=== PATIENT | female | born 1945 | race African-American/Black ===

== ENCOUNTER 2019-01-15 20:05 | Observation (INO) | payer MEDICARE, SELFPAY ==
--- NOTE | 2019-01-15 21:52 | RAD ---
CHEST ONE VIEW: 01/15/19 INDICATION: Left sided tremor. History of stroke. COMPARISON: None. FINDINGS: There is moderate cardiomegaly. No confluent air space opacity or pleural effusion is noted. No defin ite acute osseous abnormality is noted. IMPRESSION: Moderate cardiomegaly without evidence of cardiac decompensation. POS: [facility]
[2019-01-15 22:20] LABS: Mean Corpuscular HGB CONC 30.5 g/dL (32.0-36.0); Mean Corpuscular Hemoglobin 24.3 pg (27.0-31.0); Mean Corpuscular Volume 79.7 fL (78.0-98.0); Mean Platelet Volume 12.1 fL (7.4-10.4); Platelet Count 183 thou/uL (130-400); RBC Distribution Width 14.9 % (11.5-14.5); Red Blood Cell (RBC) Count 4.93 mill/uL (4.20-5.40); White Blood Cell (WBC) Count 8.6 thou/uL (4.8-10.8)
[2019-01-15 22:24] LABS: #Basophils 0.1 thou/uL (0.0-0.2); #Eosinphils 0.1 thou/uL (0.0-0.7); #Lymphocytes 3.3 thou/uL (1.20-3.40); #Monocytes 0.7 thou/uL (0.11-0.59); #Neutrophils 4.5 thou/uL (1.40-6.50); %Basophils 0.8 % (0.0-1.0); %Eosinophils 0.6 % (0.0-10.0); %Lymphocytes 38.8 % (21.0-51.0); %Monocytes 8.1 % (0.0-10.0); %Neutrophils 51.7 % (42.0-75.0)
[2019-01-15] MEDS ORDERED: Baclofen 10 MG TAB PO SCH (22:30)
[2019-01-15 22:36] LABS: ALT (SGPT) 25 U/L (8-55); AST (SGOT) 16 U/L (5-34); Albumin 3.7 g/dL (3.4-4.8); Alkaline Phosphatase 80 U/L (40-150); Anion Gap 14 mmol/L (10-20); BUN (Urea Nitrogen) 17 mg/dL (9.8-20.1); Bilirubin, Total 0.3 mg/dL (0.2-1.2); Calc. Creatinine Clearance 0 mL/min (70-130); Calcium 9.5 mg/dL (7.8-10.44); Carbon Dioxide 32 mmol/L (23-31); Chloride 100 mmol/L (98-107); Estimated GFR-MDRD Greater than 90; Glucose 111 mg/dL (83-110); Potassium 3.2 mmol/L (3.5-5.1); Protein, Total 6.7 g/dL (6.0-8.3); Sodium 143 mmol/L (136-145)
[2019-01-15 22:56] LABS: CKMB 0.8 ng/mL (0-6.6)
[2019-01-16 01:16] LABS: Troponin I 0.079 ng/mL (< 0.028)
[2019-01-16] MEDS ORDERED: diphenhydrAMINE 50 MG/ML VIAL ONE (01:34)
[2019-01-16] MEDS ORDERED: Aspirin 325 MG TAB ONE (02:23)
[2019-01-16] MEDS ORDERED: Potassium Chloride 20 MEQ TAB ONE (02:23)
[2019-01-16 04:25] LABS: Troponin I 0.062 ng/mL (< 0.028)
[2019-01-16] MEDS ORDERED: Ondansetron PF 4 MG/2 ML Vial IVP PRN (04:51)
[2019-01-16] MEDS ORDERED: Ondansetron ODT 4 MG TAB SL PRN (04:51)
[2019-01-16 05:29] VITALS: BMI 20.3
[2019-01-16 06:57] LABS: Troponin I 0.056 ng/mL (< 0.028)
[2019-01-16] MEDS ORDERED: Non-Formulary Item 1 EACH (Acetaminophen [Tylenol] 650 MG) PO PRN (09:28)
[2019-01-16] MEDS ORDERED: cloNIDine 0.1 MG TAB PO PRN (09:28)
[2019-01-16] MEDS ORDERED: Non-Formulary Item 1 EACH (Insulin Aspart [Novolog] 100 UNIT) SQ PRN (09:28)
[2019-01-16] MEDS ORDERED: Lorazepam 0.5 MG TAB PO PRN (09:28)
[2019-01-16] MEDS ORDERED: NUTRITIONAL SUPPLEMENT PER TUBE SCH (09:30)
[2019-01-16] MEDS ORDERED: [UNRECOGNIZED DRUG - OTHER] PER TUBE SCH (09:30)
[2019-01-16] MEDS ORDERED: Metoclopramide HCl 10 MG/2 ML VIAL IVP PRN (09:45)
[2019-01-16] MEDS ORDERED: Dextrose 50% Abboject 50 ML SYRINGE SLOW IVP PRN (09:56)
[2019-01-16] MEDS ORDERED: HumaLOG 300 UNITS/3 ML VIAL SC PRN (09:56)
[2019-01-16] MEDS ORDERED: Acetaminophen 325 MG TAB PO PRN (09:56)
[2019-01-16] MEDS ORDERED: Dextrose 5% in Water 1,000 ML IV PRN (09:56)
[2019-01-16 10:45] LABS: Anion Gap 15 mmol/L (10-20); BUN (Urea Nitrogen) 17 mg/dL (9.8-20.1); Calc. Creatinine Clearance 84 mL/min (70-130); Calcium 9.7 mg/dL (7.8-10.44); Carbon Dioxide 31 mmol/L (23-31); Chloride 100 mmol/L (98-107); Estimated GFR-MDRD Greater than 90; Glucose 148 mg/dL (83-110); Potassium 3.5 mmol/L (3.5-5.1); Sodium 142 mmol/L (136-145)
[2019-01-16] MEDS ORDERED: Baclofen 10 MG TAB PO PRN (12:23)
[2019-01-16] MEDS: Lorazepam 2 MG/ML VIAL SLOW IVP PRN (15:07)
--- NOTE | 2019-01-16 16:46 | HP ---
PRIMARY CARE PHYSICIAN: Inna Mejia DO. CHIEF COMPLAINT: Abdominal spasms, left-sided weakness and left-sided tremor. HISTORY OF PRESENT ILLNESS: Ms. 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 after being transferred from [facility] after developing abdominal wall spasming. She had recently suffered a stroke back in October of 2018 and later that month, had undergone G-tube placement due to poor intake and also dysphagia with also a concern of aspiration. She has been getting tube feeds since then. She had developed abdominal wall spasming yesterday the day prior to arrival. She had denied any chest pain, any shortness of breath, any headache or dizziness. She reports when the symptoms started, she had some abdominal pain, however, denies any other symptoms. Upon arrival, she was A and O x2, which appears to be her baseline. During her initial workup, chest x-ray was obtained and showed moderate cardiomegaly without evidence of a cardiac decompensation. Troponins were indeterminately elevated at 0.079 and trended down to 0.056. She was noticed to have a low potassium of 3.2. Therefore, she was given potassium replacement of 40 mEq of KCl, recheck of her potassium level showed improvement to 3.5. Due to her spasms, she was given IV push of 25 mg Benadryl and oral 10 mg of baclofen. She was also given oral 325 mg of aspirin and then she was admitted under observation on the telemetry floor. Her EKG displayed sinus tachycardia with rates in the 112 with premature atrial complex. She was seen by the primary team early the next morning and at that time, she denied any fever or chills, any chest pain, shortness of breath, or abdominal pain. Abdominal wall was currently spasming at that time. However, she had denied any pain. Talking to family members, states that there was a concern for possible seizure like activity that started the day prior, he had reported the patient has a history of seizure disorder and taking Depakote. There was no level drawn along with no prolactin level. For further evaluation, Neurology Services were then consulted. REVIEW OF SYSTEMS: All other systems reviewed and found to be negative unless mentioned above. PAST MEDICAL HISTORY: CVA, gastroesophageal reflux disease, hyperlipidemia, dementia, hypertension, left hemiplegia and hemiparesis, diabetes mellitus type 2, seizure disorder. PAST SURGICAL HISTORY: Hysterectomy and recent PEG tube placement. PSYCHIATRIC HISTORY: None. SOCIAL HISTORY: Denies any tobacco, alcohol, or illicit drug use. KNOWN ALLERGIES: Iodine. CURRENT HOME MEDICATIONS: 1. Protonix 40 mg oral daily. 2. Furosemide 40 mg oral daily. 3. Depakote 125 mg p.o. b.i.d. 4. Clonidine 0.1 mg p.o. q.8 hours p.r.n. for elevated blood pressure. 5. Lorazepam 0.5 mg p.o. q.6 hours as needed for seizure like activity. 6. Colace 100 mg p.o. b.i.d. 7. Amlodipine 2.5 mg p.o. b.i.d. 8. Lantus 10 units subcu at bedtime. 9. Lantus 20 units subcu daily. 10. NovoLog insulin sliding scale as needed p.r.n. 11. Atorvastatin 80 mg p.o. at bedtime. 12. Acetaminophen 650 mg p.o. q.6 hours as needed for pain. 13. Glucerna 1.5 calorie liquid 65 mL per tube as directed. 14. Potassium chloride 40 mEq p.o. daily. PHYSICAL EXAMINATION: VITAL SIGNS: Blood pressure 138/67, pulse 101, respirations 18, temperature 99 degrees Fahrenheit, O2 saturations 98% on room air. GENERAL: The patient is awake, alert, and oriented x2, no acute distress noted. HEENT: Atraumatic, normocephalic. Pupils are round and reactive to light. Extraocular muscles intact. Moist mucous membranes noted. NECK: Supple. Trachea midline. There is an area of granulation tissue in the neck from recent trach. CARDIOVASCULAR: Positive S1 and S2. Regular rate and rhythm. No murmur auscultated. RESPIRATORY: Clear to auscultation bilaterally. No wheezes, rales, or rhonchi. ABDOMEN: Soft, nontender. Bowel sounds present. PEG tube in place, twitching/spasming of abdomen noted diffusely. MUSCULOSKELETAL: Strength 5+ on right side; however, flaccid on the left side, both upper and lower extremities. No edema noted. NEUROLOGIC: Cranial nerves 2 through 12 grossly intact with diminished sensation noted on the left. Speech intact and normal. However, gait not assessed. SKIN: Warm, dry, and intact. No rashes. No ulcerations. PSYCHIATRIC: Good mood and affect. LABORATORY DATA: WBC 8.6, RBC 4.93, hemoglobin 12.0, platelet 183. Sodium 142, potassium 3.5, anion gap 15, BUN 17, creatinine 0.55, estimated GFR greater than 90, glucose 148, magnesium 1.7. Troponin indeterminate at 0.079, trended to 0.056. Valproic acid less than 12.5. DIAGNOSTIC IMAGING: Chest x-ray shows moderate cardiomegaly without evidence of cardiac decompensation with no confluent airspace opacity or pleural effusions noted. ASSESSMENT AND PLAN: 1. Seizure disorder, valproic acid level less than 12.5, she usually takes Depakote 125 mg p.o. b.i.d. We will have this dose increase and also seek records from her nursing facility to determine whether or not that she was getting this dose. We will ask Neurology Services to also see the patient for further recommendations and evaluation. 2. Abdominal wall spasming, continue with baclofen as needed along with IV Reglan. The patient currently stable at this time. 3. History of cerebrovascular accident with left-sided hemiplegia, continue with PT, OT, and home medications. 4. Hypertension. As above, continue on home regimen and monitor vital signs closely. 5. Diabetes mellitus type 2. Continue on home regimen, add insulin sliding scale with meals and at nighttime with frequent Accu-Cheks. 6. Hyperlipidemia. Continue on the patient's home statin therapy. 7. History of gastroesophageal reflux disease. Continue on home dose PPI. 8. History of dementia, currently stable at this time. Per family, the patient is at baseline A and O x2. 9. Deep venous thrombosis and gastrointestinal prophylaxis. CODE STATUS: Full code. The patient's is Davy Yepez. DISPOSITION: Pending further workup and clinical findings. Job ID: [id number]
[2019-01-16] MEDS: HumaLOG 300 UNITS/3 ML VIAL SC PRN ×2 (18:23→21:40)
[2019-01-16] MEDS ORDERED: Baclofen 10 MG TAB PO SCH ×2 (21:00)
[2019-01-16] MEDS ORDERED: Divalproex Sodium 125 mg Sprinkle Capsule PO SCH (21:00)
[2019-01-16] MEDS ORDERED: Valproic Acid 250 MG CAP PO SCH (21:00)
[2019-01-16] MEDS: Divalproex Sodium 125 mg Sprinkle Capsule PO SCH (21:32)
[2019-01-16] MEDS: Atorvastatin Calcium 40 MG TAB PO SCH (21:33)
[2019-01-16] MEDS: Docusate 100 MG CAP PO SCH (21:33)
[2019-01-16] MEDS: Insulin Glargine 10 UNITS in Pre-Filled Syringe 1 EACH SC SCH (21:39)
[2019-01-17] MEDS: HumaLOG 300 UNITS/3 ML VIAL SC PRN (06:28)
[2019-01-17 06:38] LABS: #Lymphocytes 2.6 thou/uL (1.20-3.40); #Monocytes 0.5 thou/uL (0.11-0.59); #Neutrophils 4.2 thou/uL (1.40-6.50); %Basophils 0.2 % (0.0-1.0); %Eosinophils 0.6 % (0.0-10.0); %Lymphocytes 35.5 % (21.0-51.0); %Monocytes 7.1 % (0.0-10.0); %Neutrophils 56.6 % (42.0-75.0); Hemoglobin 11.3 g/dL (12.0-16.0); Mean Corpuscular HGB CONC 30.8 g/dL (32.0-36.0); Mean Corpuscular Hemoglobin 24.2 pg (27.0-31.0); Mean Corpuscular Volume 78.5 fL (78.0-98.0); Mean Platelet Volume 12.2 fL (7.4-10.4); Platelet Count 186 thou/uL (130-400); Red Blood Cell (RBC) Count 4.69 mill/uL (4.20-5.40); White Blood Cell (WBC) Count 7.4 thou/uL (4.8-10.8)
[2019-01-17 06:52] LABS: Anion Gap 13 mmol/L (10-20); BUN (Urea Nitrogen) 27 mg/dL (9.8-20.1); Calc. Creatinine Clearance 76 mL/min (70-130); Calcium 9.4 mg/dL (7.8-10.44); Carbon Dioxide 32 mmol/L (23-31); Chloride 101 mmol/L (98-107); Estimated GFR-MDRD Greater than 90; Glucose 323 mg/dL (83-110); Potassium 3.8 mmol/L (3.5-5.1); Sodium 142 mmol/L (136-145)
[2019-01-17] MEDS ORDERED: HumaLOG 300 UNITS/3 ML VIAL SC PRN (08:06)
[2019-01-17] MEDS ORDERED: Sodium Chloride 0.9% 10 ML ONE (08:37)
[2019-01-17] MEDS ORDERED: Prevnar 13-Val Conj/PF 0.5 ML SYRINGE IM ONE (09:00)
[2019-01-17] MEDS: Furosemide 40 MG TAB PO SCH (09:34)
[2019-01-17] MEDS: Amlodipine 5 MG TAB PO SCH ×2 (09:34→21:24)
[2019-01-17] MEDS: Divalproex Sodium 125 mg Sprinkle Capsule PO SCH ×2 (09:36→21:24)
[2019-01-17] MEDS: Enoxaparin Sodium 40 MG/0.4 ML SYRINGE SC SCH (09:36)
[2019-01-17] MEDS: Docusate 100 MG CAP PO SCH ×2 (09:36→21:24)
[2019-01-17] MEDS: Potassium Chloride 20 MEQ TAB PO SCH (09:37)
[2019-01-17] MEDS: Insulin Glargine 20 UNITS in Pre-Filled Syringe 1 EACH SC SCH (10:23)
--- NOTE | 2019-01-17 12:17 | CON ---
DATE OF CONSULTATION: 01/17/2019 CHIEF COMPLAINT: Possible seizure. HISTORY OF PRESENT ILLNESS: The patient is unable to give much history. History was obtained both from nursing staff and chart. Per nurse, the patient has history of dementia and is at a facility. She was sent to the ER. Per ER note, she was coming in with abdominal wall spasms and she has preexisting left-sided weakness. The patient's daughter apparently notices movement of the abdomen and brought her into the hospital. The patient's blood sugars were in the 400s. No generalized seizures were noted. PREVIOUS MEDICAL HISTORY: The patient has a history of CVA with left-sided weakness at baseline, gastroesophageal reflux disease, hyperlipidemia, dementia, hypertension, left hemiplegia, and type 2 diabetes. SURGICAL HISTORY: Positive for hysterectomy. FAMILY HISTORY: Unknown. ALLERGIES: SHE IS ALLERGIC TO IODINE. MEDICATIONS: At the facility include: 1. NovoLog. 2. Potassium. 3. Pantoprazole. 4. Lasix. 5. Colace. 6. Norvasc. 7. Lantus insulin. 8. Lipitor. 9. Depakote 125 mg two tabs b.i.d. REVIEW OF SYSTEMS: Difficult to obtain from the patient. The patient is unable to answer all those questions. LABORATORY DATA: Her lab workup so far, white count 7.4, hemoglobin 11.3, hematocrit 36.8, platelets 186. Chemistry; sodium 142, potassium 3.8, chloride 101, bicarb 32, BUN 27, creatinine 0.63, and valproic acid level less than 12.5. PHYSICAL EXAMINATION: VITAL SIGNS: Temperature 97.7, pulse 108, blood pressure 136/71, and respiratory rate 18. GENERAL APPEARANCE: Well-built, well-nourished, lady who is lying in bed. The patient is unable to give much information. CHEST: Clear vesicular breathing. CARDIOVASCULAR: S1, S2 heard. No murmurs. ABDOMEN: She has a PEG tube in place and she seems to have abdominal myoclonus and movement is one per second. NEUROLOGICAL: Higher intellectual function. She is not oriented to time, but oriented to place and person. Cranial nerve examination, she had left-sided facial droop, has partial mouth opening and pupils are 2 mm, reactive. Normal extraocular movements. Tongue midline. No atrophy. Normal elevation of palate. Normal hearing bilaterally. Motor examination, bulk normal, tone normal. Strength is 4/5 in the right upper and lower extremities. Left side strength is 0/5 with diffuse weakness and she complains of pain when the limb is moved on the left side. Muscle groups tested deltoid, biceps, triceps, wrist extension and flexion, finger extension and flexion, wrist extension and flexion, iliopsoas, hamstrings, quadriceps, ankle dorsiflexion, plantar flexion bilaterally. Deep tendon reflexes were absent. Sensory difficult to assess. Cerebellar difficult to assess due to weakness on the left side and the patient's lack of understanding of the whole exam procedures. IMPRESSION: The patient is a 73-year-old lady with pre-existing stroke and dementia. She was brought in with abdominal muscle spasms. She is currently on Depakote and the patient is not sure why she is on Depakote. It is my understanding based on the patient's chart that she does have history of seizures and the nature of the seizures is unclear to me based on history unknown. Her examination shows myoclonic movements in the abdomen and alternation in mental status, likely pre-existing dementia. Per the primary care physician's note, there was a history of possible seizure like activity one day prior to this admission. TREATMENT RECOMMENDATIONS: 1. I suggest we perform an MRI of the brain to evaluate whether she has multi-infarct state. 2. I will start the patient on Keppra 500 mg b.i.d. to treat myoclonus of the abdomen and as an additional anticonvulsant for her seizures. I will follow the patient with you tomorrow. Job ID: [id number]
--- NOTE | 2019-01-17 13:13 | MRI ---
MRI OF THE BRAIN WITHOUT CONTRAST: COMPARISON: None. HISTORY: Left-sided tremors from left-sided stroke. The tremors are new. TECHNIQUE: Multiplanar, multisequence MRI images were obtained of the brain without contrast. FINDINGS: This exam is limited secondary to motion artifact. There is an area of gliosis and encephalomalacia in the right MCA distribution. This represents the patient's remote but evolving infarction. There are areas of susceptibility artifact in the MCA distribution which likely represent hemosiderin depos ition from hemorrhagic conversion of the infarction. No restricted diffusion is seen at this time to suggest a new acute infarction. There is no evidence of hydrocephalus or extraaxial fluid collection. The expected flow voids are pr esent at the skull base. The corpus callosum, pituitary, and craniocervical junction are unremarkabl e. The calvarium and overlying soft tissues are unremarkable. The visualized paranasal sinuses and mast oid air cells are well aerated. IMPRESSION: 1. No evidence of acute intracranial abnormality. 2. Remote but evolving right middle cerebral artery distribution infarction. POS: [facility]
--- NOTE | 2019-01-17 18:09 | PDOC.PN ---
- Subjective Encounter Start Date: 01/17/19 Encounter Start Time: 17:55 Patient lying in bed, no complaints over night. She denies any chest pain, palpitations, abdominal pain, shortness of breath. Neurology added Leyla, MRI shows remote infarct - Objective Resuscitation Status - Order Detail: 01/16/19 09:56 Resuscitation Status Routine Co-Sign Provider: Resuscitation Status: FULL: Full Resuscitation MAR Reviewed: Yes Vital Signs & Weight: Vital Signs (12 hours) Temp Pulse Pulse Pulse Resp BP BP 01/17/19 16:53 97.9 F 95 18 01/17/19 14:20 99 106 H 121/81 01/17/19 11:28 97.6 F 108 H 18 01/17/19 09:34 108 H 136/71 01/17/19 08:50 97.7 F 108 H 18 BP BP Pulse Ox 01/17/19 16:53 137/89 100 01/17/19 14:20 147/81 H 01/17/19 11:28 120/82 99 01/17/19 09:34 01/17/19 08:50 136/71 100 Weight Admit Weight 126 lb 4 oz Weight 132 lb I&O: 01/16/19 01/17/19 01/18/19 05:59 06:59 06:59 Intake Total 162 Balance 162 Result Diagrams: 01/17/19 05:18 01/17/19 05:18 Additional Labs: Accuchecks 01/17/19 01/17/19 01/17/19 17:20 13:04 05:56 POC Glucose 142 H 382 H 322 H 01/16/19 01/16/19 20:31 17:01 POC Glucose 246 H 206 H Radiology Reviewed by me: Yes Phys Exam - Physical Examination Constitutional: NAD HEENT: PERRLA, moist MMs, oral pharynx no lesions Neck: no nodes, no JVD Respiratory: no wheezing, clear to auscultation bilateral Cardiovascular: no significant murmur Gastrointestinal: soft, non-tender, positive bowel sounds Peg in place Weakness left side at baseline Lymphatic: no nodes Skin: no rash, cap refill <2 seconds Dx/Plan (1) Seizure disorder Code(s): G40.909 - EPILEPSY, UNSP, NOT INTRACTABLE, WITHOUT STATUS EPILEPTICUS Status: Acute (2) Spasm of abdominal muscles Code(s): M62.838 - OTHER MUSCLE SPASM Status: Acute (3) History of CVA with residual deficit Code(s): I69.30 - UNSPECIFIED SEQUELAE OF CEREBRAL INFARCTION Status: Acute (4) Dementia Code(s): F03.90 - UNSPECIFIED DEMENTIA WITHOUT BEHAVIORAL DISTURBANCE Status: Acute (5) Diabetes mellitus Code(s): E11.9 - TYPE 2 DIABETES MELLITUS WITHOUT COMPLICATIONS Status: Acute (6) GERD (gastroesophageal reflux disease) Code(s): K21.9 - GASTRO-ESOPHAGEAL REFLUX DISEASE WITHOUT ESOPHAGITIS Status: Acute - Plan cont current plan of care, PT/OT, DVT proph w/lovenox * Continue increased dose of Depakote * Continue new Keppra per neurology * Continue other home medications * PT/OT * MRI results reviewed, shows remote infarction * Continue tube feeds and recommendations or oral diet per dietary * Likely discharge in am back to [place] if okay with neurology, cannot take patient back today
[2019-01-17] MEDS ORDERED: Famotidine 20 MG TAB PO SCH (21:00)
[2019-01-17] MEDS: Lorazepam 2 MG/ML VIAL SLOW IVP PRN (21:15)
[2019-01-17] MEDS: Atorvastatin Calcium 40 MG TAB PO SCH (21:24)
[2019-01-17] MEDS: Insulin Glargine 10 UNITS in Pre-Filled Syringe 1 EACH SC SCH (21:52)
[2019-01-18 06:02] LABS: #Lymphocytes 2.6 thou/uL (1.20-3.40); #Monocytes 0.3 thou/uL (0.11-0.59); #Neutrophils 3.3 thou/uL (1.40-6.50); %Basophils 0.6 % (0.0-1.0); %Eosinophils 0.8 % (0.0-10.0); %Lymphocytes 41.3 % (21.0-51.0); %Monocytes 5.4 % (0.0-10.0); Hemoglobin 12.2 g/dL (12.0-16.0); Mean Corpuscular HGB CONC 28.3 g/dL (32.0-36.0); Mean Corpuscular Hemoglobin 23.2 pg (27.0-31.0); Mean Corpuscular Volume 81.8 fL (78.0-98.0); Mean Platelet Volume 11.9 fL (7.4-10.4); Platelet Count 181 thou/uL (130-400); RBC Distribution Width 15.1 % (11.5-14.5); Red Blood Cell (RBC) Count 5.27 mill/uL (4.20-5.40); White Blood Cell (WBC) Count 6.3 thou/uL (4.8-10.8)
[2019-01-18 06:17] LABS: Anion Gap 16 mmol/L (10-20); BUN (Urea Nitrogen) 18 mg/dL (9.8-20.1); Calc. Creatinine Clearance 87 mL/min (70-130); Calcium 9.5 mg/dL (7.8-10.44); Carbon Dioxide 29 mmol/L (23-31); Chloride 103 mmol/L (98-107); Estimated GFR-MDRD Greater than 90; Glucose 138 mg/dL (83-110); Potassium 3.5 mmol/L (3.5-5.1); Sodium 144 mmol/L (136-145)
[2019-01-18] MEDS ORDERED: Sodium Chloride 0.9% 10 ML ONE (07:50)
[2019-01-18] MEDS: Divalproex Sodium 125 mg Sprinkle Capsule PO SCH (09:28)
[2019-01-18] MEDS: Potassium Chloride 20 MEQ TAB PO SCH (09:33)
[2019-01-18] MEDS: Furosemide 40 MG TAB PO SCH (09:33)
[2019-01-18] MEDS: Enoxaparin Sodium 40 MG/0.4 ML SYRINGE SC SCH (09:33)
[2019-01-18] MEDS: Amlodipine 5 MG TAB PO SCH (09:34)
[2019-01-18] MEDS: Docusate 100 MG CAP PO SCH (09:41)
[2019-01-18] MEDS: Insulin Glargine 20 UNITS in Pre-Filled Syringe 1 EACH SC SCH (09:48)
--- NOTE | 2019-01-18 16:36 | PRG ---
DATE OF SERVICE: 01/18/2019 CHIEF COMPLAINT: Involuntary movements. INTERVAL HISTORY: The patient is more comfortable today and does not have any more hiccups or abdominal movement. At this time, no further seizures are noted. Reports brain MRI scan was performed yesterday and does not show any acute intracranial abnormality. She has a remote right MCA territory infarct. LABORATORY WORKUP: White count 6.3, hemoglobin 12.2, hematocrit 43.1, platelets 181. Sodium 144, potassium 3.5, chloride 103, bicarb 29, BUN 18, creatinine 0.54, glucose 138. PHYSICAL EXAMINATION: GENERAL APPEARANCE: Well-built, well-nourished lady who seems to be comfortable in bed. VITAL SIGNS: Blood pressure was 146/87, temperature 97, pulse 102, respiratory rate 19. NEUROLOGICAL: Higher intellectual functions. Normal orientation to time, place, and person. Cranial nerve examination, left facial droop. Motor examination; bulk normal, tone normal. Strength 4/5 on the right side and left side 0/5 due to residual weakness from before. Involuntary movements. No further abdominal myoclonus was noted. IMPRESSION: The patient is a 73-year-old lady who developed involuntary movements of her abdomen due to unclear cause. Her involuntary movements have subsided now and the Keppra seems to be helping. She also has history of seizures and there was question of whether she was having recurrence of her seizures. TREATMENT PLAN: I agree with transfer back to [facility]. Please continue the patient's Keppra. Call Neurology if you have any further questions. Job ID: [id number]
[2019-01-18 18:47] VITALS: BP 133/86; TEMP 97.8
[2019-01-18] MEDS ORDERED: levETIRAcetam 500 MG TAB PO SCH (21:00)
--- NOTE | 2019-01-19 06:28 | DIS ---
DATE OF ADMISSION: 01/16/2019 DATE OF DISCHARGE: 01/18/2019 ALLERGIES: IODINE. CHIEF COMPLAINT: Abdominal spasm, seizure activity. FINAL DIAGNOSES: 1. Myoclonic abdominal spasm, cerebrovascular accident in October 2018 with left hemiplegia. 2. Seizure disorder secondary to above with subtherapeutic Depakote level less than 12.5. 3. Dementia. 4. Diabetes mellitus. 5. Hypertension. 6. Gastroesophageal reflux disease. PROCEDURES PERFORMED: None. LABORATORY RESULTS: White blood cell count 6.3, hemoglobin 12.2. Sodium 144, potassium 3.5, carbon dioxide 103, anion gap 16, BUN 18, creatinine 0.54, GFR greater than 90, and [id number] glucose 101. Serial troponin 0.062, 0.056. Valproic acid level on January 16 with 12.5. IMAGING RESULTS: Brain MRI showing a remote but involving right middle cerebral artery distribution infarction. No evidence of acute intracranial abnormality. CONSULTATIONS: Dr. Izaguirre of Neurology. HOSPITAL COURSE: Ms. Yepez is a 73-year-old female with past medical history significant for recent CVA causing left-sided weakness and hemiplegia, hyperlipidemia, dementia, hypertension, and type 2 diabetes mellitus, who presented to the [facility] after being transferred from [facility] after developing abdominal wall spasming. She has recently undergone G-tube placement due to poor intake as well as dysphagia with a concern for aspiration. She has been getting tube feeds, although has been tolerating some oral intake per [facility]. When her symptoms started, she did have some abdominal pain. However, this had resolved by the time of her arrival in the ER. Her initial workup revealed hypokalemia with a level of 3.2, and her potassium was repleted. Her chest x-ray was negative for acute cardiopulmonary process. Her EKG showed sinus tachycardia, no acute ST or T-wave changes with a ventricular rate of 112 beats per minute. As mentioned, her valproic acid level was low at 12.5. She was seen in consultation with Neurology, Dr. Izaguirre, who was consulted, recommended repeat MRI, which did show stable evolving right MCA distribution infarction and no evidence of acute intracranial abnormality. Her Depakote was increased from 125 mg p.o. b.i.d. to 250 mg b.i.d. she was also started on Keppra 500 mg b.i.d. to treat myoclonus of abdomen as well as an additional anticonvulsant for her seizures. She has tolerated the medication adjustments well. She has been cleared by Neurology for discharge today. The patient denies any abdominal pain or spasming at this time. She is alert and oriented x2, which is the patient's baseline. She denies any chest pain or shortness of breath. She denies any nausea or vomiting. PHYSICAL EXAMINATION: VITAL SIGNS: Blood pressure 133/86, temperature 97.8, pulse 98, respirations 17, and O2 sat 98% on room air. GENERAL: The patient is awake and alert, lying in bed, oriented x2. No acute distress noted. HEENT: Atraumatic, normocephalic. Pupils are round and reactive to light. Moist mucous membranes noted. NECK: Supple. Trachea midline. No JVD. No carotid bruits. CARDIOVASCULAR: Positive S1 and S2. Regular rate and rhythm. No appreciable murmurs, rubs, or gallops. RESPIRATORY: Regular respiratory rate and pattern, clear to auscultation bilaterally. No wheezes, rales, or rhonchi. ABDOMEN: Soft, nontender. Bowel sounds are present. PEG tube is in place. Her abdomen is soft and there is no evidence of spasming. MUSCULOSKELETAL/NEUROLOGIC: Strength 5+ on right, flaccid on left. Both upper and lower extremities, no edema noted. SKIN: Warm, dry, and intact. No rashes. No ulcerations. CONDITION AT DISCHARGE: Stable. DISCHARGE MEDICATIONS: 1. Acetaminophen 325 mg capsule, 650 mg p.o. q.6 hours p.r.n. 2. Amlodipine 2.5 mg p.o. b.i.d. 3. Atorvastatin 80 mg p.o. at bedtime. 4. Carboxymethylcellulose, Refresh Plus 1 to 2 drops each eye p.r.n. daily. 5. Clonidine 0.1 mg p.o. q.8 hours. 6. Colace 100 mg capsule, 100 mg p.o. b.i.d. 7. Furosemide 40 mg p.o. daily. 8. NovoLog 100 units subcu daily. 9. Lantus 10 units subcu at bedtime. 10. NovoLog insulin sliding scale as needed p.r.n. 11. Lorazepam 0.5 mg tab p.o. q.6 hours p.r.n. 12. Pantoprazole 40 mg tab p.o. daily. 13. Potassium chloride 40 mEq p.o. daily. New medication changes: 1. Depakote Sprinkle 125 mg cap, 250 mg p.o. b.i.d. 2. Keppra 500 mg tab, 500 mg p.o. b.i.d. DISCHARGE DISPOSITION: The patient will be discharged back to [facility]. PLAN: The patient will continue advancing her diet as tolerated and receiving PEG tube feedings at night. We will continue her sliding-scale insulin regimen. We will continue increased dose of Depakote for seizure prophylaxis as well as the new addition of Keppra 500 mg p.o. b.i.d. [facility]. She will continue routine follow up with both her neurologist and primary care doctor. Job ID: [id number]
== END 2019-01-18 18:48 ==
LOC: ERS 20:05 → 2NO 01-16 04:22
PROVIDERS: ADMIT Family Medicine; ATTEND Family Medicine
DX: M62.838 Other muscle spasm (principal); G40.909 Epilepsy, unspecified, not intractable, without status epilepticus; F03.90 Unspecified dementia, unspecified severity, without behavioral disturbance, psychotic disturbance, mood disturbance, and anxiety; E11.9 Type 2 diabetes mellitus without complications; I10 Essential (primary) hypertension; K21.9 Gastro-esophageal reflux disease without esophagitis; E78.5 Hyperlipidemia, unspecified; I69.354 Hemiplegia and hemiparesis following cerebral infarction affecting left non-dominant side; Z79.4 Long term (current) use of insulin; Z79.899 Other long term (current) drug therapy; Z91.041 Radiographic dye allergy status
CPT/HCPCS: 70551; 71045; 80048 ×3; 80053; 80164; 82553; 82962 ×3; 83735; 84146; 84484 ×3; 85025 ×3; 93005; 96372 ×2; 96374; 96375; 96376; 97139 ×3; 97530 ×2; 99285; G0378 ×3; 36415; 36416; 90471; 90670; G0009; J1200; J1650; J1825; J1953; J2060

== ENCOUNTER 2019-02-07 09:08 | Observation (INO) | payer MEDICARE ==
[2019-02-07 10:53] LABS: #Eosinphils 0.1 thou/uL (0.0-0.7); #Lymphocytes 3.1 thou/uL (1.20-3.40); #Monocytes 0.5 thou/uL (0.11-0.59); #Neutrophils 4.3 thou/uL (1.40-6.50); %Basophils 0.6 % (0.0-1.0); %Eosinophils 1.3 % (0.0-10.0); %Lymphocytes 38.1 % (21.0-51.0); %Monocytes 6.3 % (0.0-10.0); %Neutrophils 53.7 % (42.0-75.0); Hemoglobin 12.1 g/dL (12.0-16.0); Mean Corpuscular HGB CONC 31.5 g/dL (32.0-36.0); Mean Corpuscular Hemoglobin 24.8 pg (27.0-31.0); Mean Corpuscular Volume 78.5 fL (78.0-98.0); RBC Distribution Width 14.3 % (11.5-14.5); Red Blood Cell (RBC) Count 4.89 mill/uL (4.20-5.40)
[2019-02-07 11:14] LABS: ALT (SGPT) 19 U/L (8-55); AST (SGOT) 25 U/L (5-34); Albumin 3.4 g/dL (3.4-4.8); Alkaline Phosphatase 56 U/L (40-150); BUN (Urea Nitrogen) 31 mg/dL (9.8-20.1); Bilirubin, Total 0.2 mg/dL (0.2-1.2); Calc. Creatinine Clearance 0 mL/min (70-130); Calcium 9.1 mg/dL (7.8-10.44); Estimated GFR-MDRD Greater than 90; Globulin 3.2 g/dL (2.4-3.5); Glucose 115 mg/dL (83-110); Protein, Total 6.6 g/dL (6.0-8.3)
[2019-02-07 11:17] LABS: Large Platelets SLIGHT; MDiff Complete? YES; Mean Platelet Volume 11.4 fL (7.4-10.4); Platelet Count 164 thou/uL (130-400); Platelet Morphology Comment Appears Adequate
[2019-02-07 11:23] LABS: Anion Gap 14 mmol/L (10-20); Carbon Dioxide 36 mmol/L (23-31); Chloride 101 mmol/L (98-107); Potassium 3.5 mmol/L (3.5-5.1); Sodium 147 mmol/L (136-145)
[2019-02-07] MEDS ORDERED: Acetaminophen 325 MG TAB PO PRN (13:30)
[2019-02-07 15:25] VITALS: BMI 19.4
--- NOTE | 2019-02-07 16:51 | HP ---
CHIEF COMPLAINT: Transfer from the [facility]term for right-sided jerking movements. HISTORY OF PRESENT ILLNESS: This patient is a 73-year-old female with a history of right MCA, CVA with left hemiplegia. The patient was just admitted here recently with some non-spastic type activity of her abdominal muscles and hiccups. She was seen by Neurology and was given Keppra in addition to her Depakote, which she was presumably already taking for history of seizure disorders. The patient has apparently done okay since that time until yesterday. I spoke with the patient's nurse at the nursing facility, and she indicated that the patient was having some chronic jerking motions of her right side last night. This was observed overnight and by this morning, and appeared to be persistent and possibly more severe. It appeared to be involuntary. Therefore, the patient was subsequently brought to the emergency department. The ER physician indicates that when he was examining the patient, she was awake and able to talk, but was having some of similar motions involving her right side. He had subsequently spoken to Neurology, who has recommended that the patient be loaded with Dilantin that has occurred. A neurologist also recommended the patient be placed on observation. The patient herself has a history of dementia, cannot give a significant amount a history, and presently only reports that she feels thirsty. REVIEW OF SYSTEMS: Not obtainable given the patient's dementia. PAST MEDICAL HISTORY: Notable for the prior CVA with left hemiplegia, history of some type of convulsive disorder, presumably seizures, diabetes mellitus, hyperlipidemia, vascular dementia, anxiety, hypertension, gastroesophageal reflux, and dysphagia for which she has a PEG tube, yet she remains on a pureed diet with nectar thick liquids. PAST SURGICAL HISTORY: Per records, prior surgical history also includes a hysterectomy as well as the PEG. SOCIAL HISTORY: No alcohol, tobacco, or drugs. The patient is a full code at the nursing facility. I attempted to reach her at the number that was given to me by the longterm. His name is Davy Yepez and his number is [phone]; however, I did not get an answer, and the patient will remain full code at this time. ALLERGIES: IODINE. CURRENT MEDICATIONS: 1. Aspirin 325 one p.o. daily. 2. Clonidine 0.1 q.8 hours p.r.n. systolic greater than 160. 3. Colace 100 mg q.12. 4. Divalproex 125 two capsules per PEG b.i.d. 5. Gabapentin 100 mg t.i.d. 6. Keppra 500 mg per PEG b.i.d. 7. Lantus 10 units subcu at bedtime and 20 units subcu q.a.m. 8. Lasix 40 mg daily per PEG. 9. Lipitor 80 mg per PEG at bedtime. 10. Lorazepam 0.5 mg q.6 hours p.r.n. 11. Norvasc 2.5 mg via PEG q.12 hours. 12. NovoLog sliding scale. 13. Pantoprazole 40 mg daily. 14. Potassium 20 mEq daily. 15. Tylenol p.r.n. PHYSICAL EXAMINATION: VITAL SIGNS: BP 123/83, pulse 100, respirations 20, temperature is 98.5, O2 saturation 96% on room air. GENERAL APPEARANCE: Age-appropriate female, in no distress. She is sleeping, but easily awakens. She does speak some, but not able to be very conversant or give much history. HEENT: PERRL. No OP lesions. NECK: Supple and symmetric. HEART: Regular rate and rhythm without murmurs, gallops, or rubs. LUNGS: Clear to auscultation bilaterally with good chest wall expansion and air exchange. ABDOMEN: Soft, nontender, and nondistended. Positive bowel sounds. No masses. No organomegaly. EXTREMITIES: Warm and dry with no cyanosis, clubbing, or edema. NEUROLOGIC: The patient has left hemiplegia. She has a very subtle movement in the right upper extremity, although she is moving, it is deliberately and spontaneously. It appears to be almost like a cogwheel type rigidity without other involuntary tonic clonic activity presently. LABORATORY DATA: White count 8.0, hemoglobin 12.4, platelets 164. Sodium 147, potassium 3.5, chloride 101, CO2 of 36, BUN 31, creatinine 0.63, glucose 115. LFTs normal. Depakote level is 53. IMPRESSION AND PLAN: 1. New tonic clonic activity of the right side, unclear etiology. Certainly may represent some partial seizures. The patient has been loaded with 1000 mg of fosphenytoin. Presently, she does not appear to have significant amount of this type of movement. The patient will be placed on observation per the recommendations of Dr. Izaguirre. Neurology will be consulted for further recommendations. Unfortunately, this patient has some dementia, has left hemiplegia and is essentially bed bound, and unable to give substantially more history. 2. Diabetes mellitus. We will continue on regular pureed diet, but cover with sliding scale insulin and resume her usual home insulin regimen. We will continue with Glucerna feeds at night. 3. Dysphagia. Continue to use PEG tube possible. The patient appears to have pureed diet with nectar thick liquids at the nursing facility and will continue with that. 4. Hyperlipidemia. Continue with her statin. 5. Hypertension. Continue with her usual home medication regimen. 6. History of reflux. We will continue with PPI. Job ID: [id number]
[2019-02-07] MEDS ORDERED: Dextrose 50% Abboject 50 ML SYRINGE SLOW IVP PRN (17:09)
[2019-02-07] MEDS ORDERED: Dextrose 5% in Water 1,000 ML IV PRN (17:09)
[2019-02-07] MEDS ORDERED: cloNIDine 0.1 MG TAB PER TUBE PRN (17:15)
[2019-02-07] MEDS ORDERED: REFRESH PLUS (Carboxymethylcellulose 0.5%) Opth Drops EA EYE PRN (17:15)
[2019-02-07] MEDS ORDERED: Lorazepam 0.5 MG TAB PER TUBE PRN (17:15)
[2019-02-07] MEDS ORDERED: [UNRECOGNIZED DRUG - OTHER] PER TUBE SCH (17:15)
[2019-02-07] MEDS ORDERED: NUTRITIONAL SUPPLEMENT PER TUBE SCH (17:15)
[2019-02-07] MEDS ORDERED: Acetaminophen 325 MG TAB PER TUBE PRN (17:15)
[2019-02-07] MEDS: HumaLOG 300 UNITS/3 ML VIAL SC PRN (18:18)
--- NOTE | 2019-02-07 18:24 | CON ---
DATE OF CONSULTATION: 02-07-19 TELEMEDICINE VISIT WITH VADIM DIETRICH CHIEF COMPLAINT: Seizures. HISTORY OF PRESENT ILLNESS: I was called earlier by the ER physician to give me history about her involuntary movements. The patient is unable to give any medical history, no family is present. The patient was sent to the ER from [facility] due to sudden onset of twitching of the right side. What the ER physician described to me was facial and right arm and leg twitching and this was apparently new. The patient is already on Keppra, Depakote, and she is having involuntary movements, which were continuous. IV fosphenytoin was given to the patient prior to admission. The patient has left-sided weakness at baseline. She also has dementia. PREVIOUS MEDICAL HISTORY: CVA with left hemiplegia, gastroesophageal reflux disease, hyperlipidemia, dementia, hypertension, and type 2 diabetes. PREVIOUS SURGICAL HISTORY: The patient has hysterectomy and PEG tube. SOCIAL HISTORY: The patient lives in [facility]. Does not smoke or drink. ALLERGIES: SHE IS ALLERGIC TO IODINE. MEDICATIONS: At the [facility] include: 1. NovoLog. 2. Potassium. 3. Pantoprazole. 4. Lasix. 5. Colace. 6. Norvasc. 7. Lantus insulin. 8. Lipitor. 9. Depakote 250 mg b.i.d. 10. Aspirin 325 mg per day. 11. Clonidine 0.1 mg per day. 12. Gabapentin 100 mg. 13. Keppra 500 mg b.i.d. 14. Lorazepam as needed. REVIEW OF SYSTEMS: Difficult to obtain. FAMILY HISTORY: None relevant, not noted in the chart at this time. LABORATORY DATA: Sodium 147, potassium 3.5, chloride 101, bicarb 36, BUN 31, creatinine 0.63. Liver functions are within normal. Hemoglobin 12.1, hematocrit 38.4, white count 8.0, platelets 164. Valproic acid level is 53 and it is within therapeutic range. PHYSICAL EXAMINATION: VITAL SIGNS: Temperature 98.1, pulse 93, respiratory rate 16, and blood pressure 122/79. GENERAL APPEARANCE: The patient is lying in the bed. Looks comfortable. No involuntary movements were noted. CHEST: Clear vesicular breathing. CARDIOVASCULAR: S1 and S2 heard. No murmurs. ABDOMEN: Soft. No organomegaly. She has a PEG tube. NEUROLOGICAL EXAMINATION: The patient is answering some simple questions, but is not oriented to time or person and she knows that she is at hospital. Cranial nerve examination, she is unable to perform extraocular movements, but tends to track her with her eyes. Pupils are 2 mm, reactive. She has left facial asymmetry with facial weakness. Tongue is midline. Motor examination; bulk normal, tone increased on the left side, strength 0/5 on the left side. Right upper extremity strength was 3/5. Right lower extremity strength was 4/5. Both the distal and proximal muscle groups tested are iliopsoas, hamstrings, quadriceps, ankle dorsiflexion, plantar flexion, deltoid, biceps, triceps, wrist extension and flexion, finger extension and flexion. Sensory and cerebellar unable to evaluate. IMPRESSION: The patient is a 73-year-old lady with a known history of stroke and left hemiparesis. She had abdominal myoclonus at her last admission recently, which was treated with Keppra. During this admission, she is coming with partial seizures on the right side, which could be due to hypernatremia that she is currently experiencing and she might have a seizure focus in the left brain. TREATMENT RECOMMENDATIONS: Please continue fosphenytoin IV 100 mg three times daily and we will request an MRI of the brain to rule out any acute event. If MRI is abnormal, please call Neurology again for followup. Job ID: [id number] [facility]
[2019-02-07] MEDS: Docusate 100 MG CAP PER TUBE SCH (20:24)
[2019-02-07] MEDS: Divalproex Sodium 125 mg Sprinkle Capsule PER TUBE SCH (20:24)
[2019-02-07] MEDS: levETIRAcetam 500 MG TAB PER TUBE SCH (20:25)
[2019-02-07] MEDS: Amlodipine 5 MG TAB PER TUBE SCH (20:25)
[2019-02-07] MEDS: Gabapentin 100 MG CAP PO SCH (20:25)
[2019-02-07] MEDS ORDERED: Atorvastatin Calcium 40 MG TAB PO SCH (21:00)
[2019-02-07] MEDS ORDERED: Insulin Glargine 10 UNITS in Pre-Filled Syringe SC SCH (21:00)
[2019-02-08] MEDS: HumaLOG 300 UNITS/3 ML VIAL SC PRN ×3 (05:42→18:01)
[2019-02-08] MEDS ORDERED: Aspirin 325 MG TAB PER TUBE SCH (09:00)
[2019-02-08] MEDS ORDERED: Furosemide 40 MG TAB PER TUBE SCH (09:00)
[2019-02-08] MEDS ORDERED: Potassium Chloride 20 MEQ TAB PO SCH (09:00)
[2019-02-08] MEDS ORDERED: Pantoprazole 40 MG GRANULES PACKET PER TUBE SCH (09:00)
[2019-02-08] MEDS: Divalproex Sodium 125 mg Sprinkle Capsule PER TUBE SCH (09:09)
[2019-02-08] MEDS: Gabapentin 100 MG CAP PO SCH ×2 (09:10→14:34)
[2019-02-08] MEDS: levETIRAcetam 500 MG TAB PER TUBE SCH (09:10)
[2019-02-08] MEDS: Docusate 100 MG CAP PER TUBE SCH (09:10)
[2019-02-08] MEDS: Amlodipine 5 MG TAB PER TUBE SCH (09:10)
--- NOTE | 2019-02-08 09:39 | PRG ---
DATE OF SERVICE: 02/08/2019 SUBJECTIVE: The patient this morning says she is doing fine, but she is tired and just wants to sleep. She also says that she wants some water. She denies any other problems or pain. OBJECTIVE: VITAL SIGNS: Temperature is 99.2, pulse 91, respirations 14, O2 saturation 96% on room air, and blood pressure 124/80. GENERAL APPEARANCE: Age-appropriate female. She appears to be much more awake and alert today. She is supine in the bed. She has her head turned to the right, which is where she was previously. She is moving her right upper and lower extremities regularly without any evidence of tremor or seizure-type activity. HEART: Regular rate and rhythm without murmurs. LUNGS: Clear bilaterally. ABDOMEN: Soft, nontender, and nondistended. PEG tube is in place. EXTREMITIES: No edema. Blood sugars have increased to 216 to 278. IMPRESSION AND PLAN: 1. Partial seizures on the right side per Neurology assessment. She was loaded with fosphenytoin yesterday in the emergency room and will continue that 100 mg IV t.i.d. per the recommendations of Neurology. She has an MRI of the brain pending. We will also address the mild underlying hypernatremia. 2. Mild hypernatremia. The patient has requested water when both times I have talked to her. She is getting some free water flushes with her feeds. I am going to give her some free water boluses through the day today and she has had liberty to drink nectar thick liquids throughout the day as well. 3. Diabetes mellitus. Sugars are elevated today. She is on Accu-Chek and sliding scale on the regimen, may need to add some longer-acting insulin as well. 4. History of dysphagia using the percutaneous endoscopic gastrostomy tube. She is on pureed food and nectar thick liquids. 5. Hypertension, well controlled, stable. Continue current medicines. 6. Hyperlipidemia, stable. Continue her home statin. 7. History of reflux. Continue the PPI. 8. Disposition. Assuming the patient's MRI does not show any significant new finding, this will likely be able to switch over to Dilantin per the percutaneous endoscopic gastrostomy tube and be able to discharge back to the nursing facility today. Job ID: [id number]
[2019-02-08] MEDS: Fosphenytoin Sodium 100 MG in Sodium Chloride 0.9% 50 ML IVPB SCH ×2 (10:10→14:34)
--- NOTE | 2019-02-08 16:13 | MRI ---
[facility] Brain WO Con: 02/08/2019 12:00 AM CLINICAL HISTORY: Stroke, Left-sided tremors. Seizures. COMPARISON: 01/17/2019 FINDINGS: Motion artifact limits evaluation. Extra axial spaces: Stable. Hemorrhage: Redemonstration of hemosiderin deposition from hemorrhagic transformation of previously d ocumented large subacute right hemispheric infarction. Ventricular system: Stable. Basal cisterns: No significant interval effacement. Cerebral parenchyma: Redemonstration of diffuse signal alteration throughout majority of right cerebr al hemisphere. Midline shift: None of significant. Cerebellum: No interval acute process Brainstem: Stable Paranasal sinuses:Clear IMPRESSION:Redemonstration of hemorrhagic transformation of a large, subacute right cerebral hemisphe torsten infarction.
[2019-02-08 18:34] VITALS: BP 133/83; TEMP 98.9
== END 2019-02-08 19:15 | disposition home or self-care (01) ==
LOC: ERS 09:08 → T4-B 12:30
PROVIDERS: ADMIT Internal Medicine; ATTEND Internal Medicine
DX: G40.109 Localization-related (focal) (partial) symptomatic epilepsy and epileptic syndromes with simple partial seizures, not intractable, without status epilepticus (principal); E87.0 Hyperosmolality and hypernatremia; I69.354 Hemiplegia and hemiparesis following cerebral infarction affecting left non-dominant side; E11.9 Type 2 diabetes mellitus without complications; E78.5 Hyperlipidemia, unspecified; F41.9 Anxiety disorder, unspecified; I10 Essential (primary) hypertension; K21.9 Gastro-esophageal reflux disease without esophagitis; F01.50 Vascular dementia, unspecified severity, without behavioral disturbance, psychotic disturbance, mood disturbance, and anxiety; R13.10 Dysphagia, unspecified; Z79.82 Long term (current) use of aspirin; Z79.4 Long term (current) use of insulin; Z79.899 Other long term (current) drug therapy; Z91.041 Radiographic dye allergy status; Z93.1 Gastrostomy status
CPT/HCPCS: 70551; 80053; 80164; 82962 ×2; 85025; 96365; 96366; 97139; 99285; G0378 ×2; 36415; 36416; J1825; J7050; Q2009